=== PATIENT | male | born 1935 | race Caucasian/White ===

== ENCOUNTER 2017-12-11 19:12 | Emergency (ER) | payer MEDICARE, BC ==
--- NOTE | 2017-12-11 19:40 | UC ---
Ear Complaint HPI - HPI Summary HPI Summary: Pt presents with potential FB in left ear. He tells me that he wears hearing aids - he went to take them out earlier this evening and noticed a small bit of the ear piece was missing. He thinks it is in his ear. No pain. - History of Current Complaint Stated Complaint: PIECE OF HEARING AID STUCK IN LEFT EAR Time Seen by Provider: 12/11/17 19:31 Hx Obtained From: Patient Onset/Duration: Sudden Onset Severity Currently: None - Allergies/Home Medications Allergies/Adverse Reactions: Allergies Allergy/AdvReac Type Severity Reaction Status Date / Time Sulfa (Sulfonamide Allergy Rash Verified 12/11/17 19:45 Antibiotics) Home Medications: Home Medications Beclomethasone 40 MCG MDI(NF) [Qvar 40 MCG MDI(NF)] 1 puff PO BID 12/11/17 [ History Confirmed 12/11/17] PMH/Surg Hx/FS Hx/Imm Hx Previously Healthy: Yes - Family History Known Family History: Positive: Unknown - Social History Occupation: Retired Lives: With Family Alcohol Use: Occasionally Substance Use Type: None Smoking Status (MU): Never Smoked Tobacco Review of Systems Constitutional: Negative Skin: Negative Eyes: Negative ENT: Other - ear FB Respiratory: Negative Cardiovascular: Negative Musculoskeletal: Negative Neurological: Negative Psychological: Negative All Other Systems Reviewed And Are Negative: Yes Physical Exam - Summary Physical Exam Summary: GENERAL: NAD. WDWN. No pain distress. SKIN: No rashes, sores, ulcers, masses, lesions. HEENT: Head: AT/NC Eyes: EOM intact. Conjunctiva clear without inflammation or discharge. Ears: Right ear: TMs intact, no bulging, erythema, or edema. Left ear: Black FB within the ear canal NECK: Supple. Nontender. No lymphadenopathy. CHEST: No accessory muscle use. Breathing comfortably and in no distress. CV: Pulses intact. Brisk cap refill. NEURO: Alert. CN II-XII grossly intact. PSYCH: Age appropriate behavior. Triage Information Reviewed: Yes Ear Complaint Course/Dx - Course Course Of Treatment: FB removed simply with alligator forceps. TM WNL and no FB remained. Pt tolerated well - Differential Dx/Diagnosis Provider Diagnoses: FB left ear Discharge - Sign-Out/Discharge Documenting (check all that apply): Discharge/Admit/Transfer - Discharge Plan Condition: Stable Disposition: HOME Patient Education Materials: Ear Foreign Body (ED) Referrals: NIGEL [Other] Additional Instructions: If you develop a fever, shortness of breath, chest pain, new or worsening symptoms - please call your PCP or go to the ED. - Billing Disposition and Condition Condition: STABLE Disposition: HOME
[2017-12-11 19:44] VITALS: BP 135/75
== END 2017-12-11 19:45 | disposition home or self-care (01) ==
LOC: UCEAST 19:12
DX: T16.2XXA Foreign body in left ear, initial encounter (principal); Z97.4 Presence of external hearing-aid; Z88.2 Allergy status to sulfonamides
CPT/HCPCS: 99201; G0463

== ENCOUNTER 2019-01-20 20:45 | Emergency (ER) | payer MEDICARE, BC ==
[2019-01-20] MEDS ORDERED: NS 0.9% 1000 ML** 1,000 ML IV.FLUID IV ONE (20:57)
[2019-01-20] MEDS ORDERED: Acetaminophen TAB* 325 MG PO ONE (21:28)
--- NOTE | 2019-01-20 21:30 | ED ---
HPI Febrile Illness - HPI Summary HPI Summary: The patient is an 83 y/o M presenting to [facility] accompanied by with a chief complaint of sudden onset fevers, chills, and fatigue starting this evening. He reports that he wasn't feeling the best all day with some nausea and fatigue, but then he suddenly got a fever and chills. He used Tylenol [employer] to no relief of his symptoms. He denies abd pain, diarrhea, difficulty urinating, dysuria, and hematuria. He states that there is a pruritic rash on the left shoulder, but he states that this rash is intermittent, and there are no new rashes present at this time. He notes that he does go outdoors but hasn't found any ticks on himself recently. Hx of TIA in 2006. - History of Current Complaint Chief Complaint: EDFever Time Seen by Provider: 01/20/19 20:57 Hx Obtained From: Patient Onset/Duration: Started Hours Ago, Still Present Timing: Lasting Hours Initial Severity: Mild Current Severity: Mild Pain Intensity: 0 Pain Scale Used: 0-10 Numeric Aggravating Factors: Nothing Alleviating Factors: Nothing - Tylenol did not relieve fever Associated Signs and Symptoms: Other: - POSITIVE: chills, nausea, fatigue; NEGATIVE: abd pain, diarrhea, difficulty urinating, dysuria, hematuria, rash - Allergy/Home Medications Allergies/Adverse Reactions: Allergies Allergy/AdvReac Type Severity Reaction Status Date / Time Sulfa (Sulfonamide Allergy Rash Verified 12/11/17 19:45 Antibiotics) PMH/Surg Hx/FS Hx/Imm Hx Cardiovascular History: Denies: Hx Hypertension Respiratory History: Reports: Hx Chronic Obstructive Pulmonary Disease (COPD) Neurological History: Reports: Hx Transient Ischemic Attacks (TIA) - in 2006 - Surgical History Surgery Procedure, Year, and Place: none Infectious Disease History: No Infectious Disease History: Denies: Traveled Outside the [place] in Last 30 Days - Family History Known Family History: Negative: Hypertension - Social History Lives: With Family Alcohol Use: Occasionally Hx Substance Use: No Substance Use Type: Reports: None Hx Tobacco Use: No Smoking Status (MU): Never Smoked Tobacco Do You Chew or Dip Tobacco: No Have You Chewed or Dipped Tobacco in the LAST YEAR: No Have You Smoked in the Last Year: No Review of Systems Positive: Fever, Chills, Fatigue Positive: Nausea. Negative: Abdominal Pain, Diarrhea Positive: other - NEGATIVE: difficulty with urination. Negative: dysuria, hematuria Negative: Rash All Other Systems Reviewed And Are Negative: Yes Physical Exam - Summary Physical Exam Summary: Appearance: Appears to be uncomfortable in the stretcher, Well-nourished, lying in bed comfortably Skin: Febrile, dry, no obvious rash Eyes: sclera anicteric, no conjunctival pallor ENT: mucous membranes moist, pharynx appears normal Neck: Supple, nontender Respiratory: Clear to auscultation, no signs of respiratory distress Cardiovascular: Tachycardia. No murmurs. Normal distal pulses in tibial and radial bilaterally. Abdomen: Soft, nontender, normal active bowel sounds present Musculoskeletal: Normal, Strength/ROM Intact Neurological: A&Ox3, awake and alert, mentation is normal, speech is fluent and appropriate Psychiatric: affect is normal, does not appear anxious or depressed Triage Information Reviewed: Yes Vital Signs On Initial Exam: Initial Vitals Temp Pulse Resp BP Pulse Ox 102.1 F 114 24 92/62 94 01/20/19 20:47 01/20/19 20:47 01/20/19 20:47 01/20/19 20:47 01/20/19 20:47 Vital Signs Reviewed: Yes Diagnostics - Vital Signs Vital Signs Temp Pulse Resp BP Pulse Ox 01/20/19 21:21 96 01/20/19 21:13 116 26 96 01/20/19 20:47 102.1 F 114 24 92/62 94 - Laboratory Result Diagrams: 01/20/19 21:45 01/20/19 21:45 Lab Statement: Any lab studies that have been ordered have been reviewed, and results considered in the medical decision making process. - Radiology CXR Radiology Interpretation Completed By: Radiologist Summary of Radiographic Findings: No acute process. ED physician has reviewed this radiology report. - EKG 2115 Cardiac Rate: Tachycardia - 109 BPM EKG Rhythm: Sinus Tachycardia Summary of EKG Findings: RBBB, No STEMI Re-Evaluation - Re-Evaluation First Eval Re-Evaluation Time: 23:43 Comment: I spoke with the patient concerning results and discharge home. Course/Dx - Course Course Of Treatment: The patient is an 83 y/o M presenting to [facility] accompanied by with a chief complaint of sudden onset fevers, chills, and fatigue starting this evening with nausea earlier in the day. He denies abd pain, diarrhea, difficulty urinating, dysuria, hematuria, and rash. No known recent tick bite. Upon physical exam, the patient appears to be uncomfortable in the stretcher, known febrile and tachycardia. In the ED course, the patient was administered Ns and Tylenol for fever. Blood work reveals hgb of 12.2, hct of 36 , abs neuts of 10.0, abs lymphs of 0.1, BUN/creatinine ratio of 27.5, glucose of 139, AST of 52, CRP of 9.64, and total protein of 6.0 but otherwise no acute abnormalities. UA reveals 3+ blood, positive nitrate, 2+ leukocyte esterase, 3+ WBC, 3+ RBC, 1+ bacteria, and presence of ascorbic acid. EKG reveals sinus tachycardia at 109 BPM and RBBB. CXR reveals no acute process. He is diagnosed with UTI. He will be discharged home with rx for Ceftin and instructions for return if needed. He agrees with this plan and understands the need for return to the ED for any new or worsening symptoms. - Diagnoses Provider Diagnoses: UTI (urinary tract infection) Discharge - Sign-Out/Discharge Documenting (check all that apply): Patient Departure - Patient will be discharged home. Patient Received Moderate/Deep Sedation with Procedure: No - Discharge Plan Condition: Fair Disposition: HOME Prescriptions: ceFUROXime TAB(*) [Ceftin TAB 250 MG(*)] 250 mg PO BID #20 tab Patient Education Materials: Urinary Tract Infection in Older Adults (ED) Referrals: Sha Sparks MD [Primary Care Provider] - 3 Days Additional Instructions: Fill the oral antibiotic tomorrow and start taking it in the evening, twice daily. If you feel sicker come back. There is a chance the blood cultures could turn positive, this would likely happen tomorrow or the next day. If that happens, we will need to call you back in to the hospital. - Billing Disposition and Condition Condition: FAIR Disposition: Home - Attestation Statements Document Initiated by Scribe: Yes Documenting Scribe: Ann Boykin Provider For Whom Sakina is Documenting (Include Credential): Dr. Jason Rai MD Scribe Attestation: Ann Luevano scribed for Dr. Jason Rai MD on 01/22/19 at 0443. Scribe Documentation Reviewed: Yes Provider Attestation: The documentation as recorded by the Ann romeo accurately reflects the service I personally performed and the decisions made by me, Dr. Jason Rai MD Status of Sakina Document: Viewed
[2019-01-20 21:57] LABS: ABS Eosinophils 0.1 10^3/ul (0-0.6); ABS Lymphocytes 0.1 10^3/ul (1.0-4.8); ABS Monocytes 0.1 10^3/ul (0-0.8); Eosinophil % 1.2 %; Hematocrit 36 % (42-52); Hemoglobin 12.2 g/dL (14.0-18.0); Lymphocyte % 1.4 %; Mean Corpuscular HGB Conc 34 g/dL (31-36); Mean Corpuscular Hemoglobin 29 pg (27-31); Mean Corpuscular Volume 86 fL (80-94); Mean Platelet Volume 7.9 fL (7.4-10.4); Platelet Count 188 10^3/uL (150-450); Red Blood Count 4.22 10^6 /uL (4.18-5.48); Red Cell Distribution Width 14 % (10.5-15); White Blood Count 10.4 10^3/uL (3.5-10.8)
[2019-01-20 22:07] LABS: Activated Partial Thrombo Time 31.8 seconds (26.0-38.0); INR 1.05 (0.82-1.09)
[2019-01-20 22:14] LABS: Albumin 3.9 g/dL (3.2-5.2); Albumin/Globulin Ratio 1.9 (1-3); BUN/Creatinine Ratio 27.5 (8-20); C Reactive Protein 9.64 mg/L (<8.01); Calcium 8.6 mg/dL (8.6-10.3); EGFR African American 111.2 (>60); EGFR Non-African American 91.9 (>60); Globulin 2.1 g/dL (2-4); Total Bilirubin 0.5 mg/dL (0.2-1.0)
[2019-01-20 23:25] LABS: Urine Appearance Clear; Urine Bacteria 1+ (Absent); Urine Bilirubin Negative (Negative); Urine Blood 3+ (Negative); Urine Color Yellow; Urine Glucose Negative (Negative); Urine Ketones Negative (Negative); Urine Nitrite Positive (Negative); Urine Protein Negative (Negative); Urine Red Blood Cell 3+(>10/hpf) (Absent); Urine Specific Gravity 1.018 (1.010-1.030); Urine Urobilinogen Negative (Negative); Urine White Blood Cell 3+(>20/hpf) (Absent)
[2019-01-20] MEDS ORDERED: cefTRIAXone(*) 1 GM in NS 0.9% 50 ML* 50 ML IVPB ONE (23:46)
[2019-01-21 00:31] VITALS: BP 106/62
--- NOTE | 2019-01-23 07:06 | PN ---
Progress Note - Progress Note Date of Service: 01/20/19 Note: Urine culture preliminary grew Escherichia coli 100,000 Patient was placed on cefuroxime prior to discharge We will await sensitivities Nothing further at this time
== END 2019-01-21 00:31 | disposition home or self-care (01) ==
LOC: ED 20:45
DX: N39.0 Urinary tract infection, site not specified (principal); B96.20 Unspecified Escherichia coli [E. coli] as the cause of diseases classified elsewhere; R00.0 Tachycardia, unspecified; I45.10 Unspecified right bundle-branch block; R50.9 Fever, unspecified; R11.0 Nausea; R53.83 Other fatigue; R21 Rash and other nonspecific skin eruption; J44.9 Chronic obstructive pulmonary disease, unspecified; Z88.2 Allergy status to sulfonamides
CPT/HCPCS: 36415; 71046; 80053; 81003; 81015; 83605; 84484; 85025; 85610; 85730; 86140; 87040; 87077; 87086; 87186; 93005; 96361; 96365; 99283; A9270-GY; J0696

== ENCOUNTER → 2019-03-13 08:21 | Emergency (ER) | payer MEDICARE, BC ==
[~2019-03-13 08:21] MED LIST: Ibuprofen TAB* 600 MG PO ONE
--- NOTE | 2019-03-13 09:14 | ED ---
Lower Extremity - HPI Summary HPI Summary: Patient is an otherwise healthy 84-year-old male who presents to the ED after a fall at approximately 1:30 this morning. states he has been falling out of bed more frequently. Patient states he did hit his head, but denies any headache or LOC. He does endorse pain directly over the left lateral hip and pain to the groin. He states it is difficult for him to ambulate and sit upright. Worsening pain when going from laying to sitting or sitting to standing. He states once he is up standing, he is able to ambulate, however is unable to flex and extend at the hip. States he is "limping and dragging the left leg." He has not taken any medication prior to arrival. He declines medications on arrival. He denies any other injuries after his fall this morning. 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 Mechanism Of Injury: Direct Blow Onset of Pain: Hours Onset/Duration: Hours Severity Initially: Moderate Severity Currently: Moderate Pain Intensity: 10 Pain Scale Used: 0-10 Numeric Timing: Constant Location: Is Discrete @ - left hip and groin Character Of Pain: Aching Associated Signs And Symptoms: Negative: Swelling, Redness, Bruising Aggravating Factor(s): Standing, Ambulation, Movement Alleviating Factor(s): Rest - no pain with rest - Risk Factors Gout Risk Factors: Age Over 40, Male DVT Risk Factors: Negative Septic Arthritis Risk Factor: Negative - Allergies/Home Medications Allergies/Adverse Reactions: Allergies Allergy/AdvReac Type Severity Reaction Status Date / Time Sulfa (Sulfonamide Allergy Rash Verified 03/13/19 08:30 Antibiotics) PMH/Surg Hx/FS Hx/Imm Hx Previously Healthy: Yes Cardiovascular History: Denies: Hx Hypertension Respiratory History: Reports: Hx Chronic Obstructive Pulmonary Disease (COPD) Neurological History: Reports: Hx Transient Ischemic Attacks (TIA) - in 2006 - Surgical History Surgery Procedure, Year, and Place: none - Immunization History Hx Pertussis Vaccination: No Immunizations Up to Date: Yes Infectious Disease History: No Infectious Disease History: Denies: Traveled Outside the [place] in Last 30 Days - Family History Known Family History: Positive: Unknown Negative: Hypertension - Social History Occupation: Unemployed Lives: With Family Alcohol Use: Occasionally Hx Substance Use: No Substance Use Type: Reports: None Hx Tobacco Use: No Smoking Status (MU): Never Smoked Tobacco Have You Smoked in the Last Year: No Review of Systems Constitutional: Negative Negative: Fever, Chills, Fatigue, Skin Diaphoresis Negative: Palpitations, Chest Pain Negative: Shortness Of Breath, Cough Genitourinary: Negative Positive: no symptoms reported, see HPI Positive: Arthralgia - left hip. Negative: Myalgia Skin: Negative Neurological: Negative All Other Systems Reviewed And Are Negative: Yes Physical Exam Triage Information Reviewed: Yes Vital Signs On Initial Exam: Initial Vitals Temp Pulse Resp BP Pulse Ox 98.1 F 82 16 121/80 99 03/13/19 08:25 03/13/19 08:25 03/13/19 08:25 03/13/19 08:25 03/13/19 08:25 Vital Signs Reviewed: Yes Appearance: Positive: Well-Appearing, Well-Nourished Skin: Positive: Warm, Skin Color Reflects Adequate Perfusion Head/Face: Positive: Normal Head/Face Inspection Eyes: Positive: EOMI, Conjunctiva Clear Neck: Positive: Supple, No Lymphadenopathy Respiratory/Lung Sounds: Positive: Clear to Auscultation, Breath Sounds Present Cardiovascular: Positive: RRR, Pulses are Symmetrical in both Upper and Lower Extremities Musculoskeletal: Positive: Pain @ - left hip and groin pain Neurological: Positive: Speech Normal Psychiatric: Positive: Affect/Mood Appropriate Diagnostics - Vital Signs Vital Signs Temp Pulse Resp BP Pulse Ox 03/13/19 08:25 98.1 F 82 16 121/80 99 - Laboratory Lab Statement: Any lab studies that have been ordered have been reviewed, and results considered in the medical decision making process. Lower Extremity Course/Dx - Course Course Of Treatment: This patient is evaluated for left hip and groin pain after a fall this morning. He states he landed directly over the left hip. On physical examination, patient is unable to flex or extend at the hip. No pain on deep palpation to the groin, no obvious hernia, ecchymosis, swelling or other signs of trauma. Logroll the patient without discomfort. Patient is unable to lift the left leg actively or passively due to pain. The leg is not internally or externally rotated on exam. X-ray obtained: This was no acute fracture. Pelvis CT obtained which also has no evidence of a fracture. Patient remains ambulatory, however with pain to the lateral portion of the hip. No ecchymosis or swelling is noted. Patient states he would not like to stay at [facility] as he remains ambulatroy and would like to be discharged at this time, however will follow-up with orthopedics in their clinic. - Diagnoses Differential Diagnosis/HQI/PQRI: Positive: Fracture (Closed), Sprain, Strain Provider Diagnoses: Left hip pain, Fall Discharge - Sign-Out/Discharge Documenting (check all that apply): Patient Departure Patient Received Moderate/Deep Sedation with Procedure: No - Discharge Plan Condition: Stable Disposition: HOME Prescriptions: traMADol TAB* [Ultram*] 50 mg PO Q8H PRN #12 tab MDD 3 PRN Reason: Pain Patient Education Materials: Hip Pain (ED) Referrals: Hailee Duran MD [Medical Doctor] - Sha Sparks MD [Primary Care Provider] - Additional Instructions: Please follow up with Dr. Duran if symptoms persist of worsen Tramadol up to three times daily for pain not well controlled with tylenol 650mg and ibuprofen 600mg Ibuprofen 600mg three times daily for inflammation Heat to the area Stand up slowly when attempting to ambulate - Billing Disposition and Condition Condition: STABLE Disposition: Home
[2019-03-13 12:07] VITALS: BP 112/69
== END | disposition home or self-care (01) ==
LOC: ED 08:21
DX: M25.552 Pain in left hip (principal); W06.XXXA Fall from bed, initial encounter; Y92.003 Bedroom of unspecified non-institutional (private) residence as the place of occurrence of the external cause; J44.9 Chronic obstructive pulmonary disease, unspecified; Z88.2 Allergy status to sulfonamides
CPT/HCPCS: 72192; 99282; A9270-GY